=== PATIENT | female | born 1965 | race Caucasian/White ===

== ENCOUNTER 2016-12-16 14:06 | Emergency (ER) | payer OTHER ==
[~2016-12-16] VITALS: Ht 170.2 cm; Wt 140.6 kg
[~2016-12-16 14:06] MED LIST: COMBIVENT INH14.7 GM IH; COMBIVENT RESPIM4 GM IH; DILAUDID2 MG PO; DUONEB 2.5-0.5 M3 ML IH; EMERGEN-C PO; FLOVENT 22120 INHALA IH; FUROSEMIDE20 MG PO; MOTRIN800 MG PO; NAPROXEN SODIU550 MG PO; PEPCID AC; ROBITUSSIN100 MG/5 M PO; TYLENOL WITH C1 EACH PO
[2016-12-16 15:05] LABS: HEMATOCRIT 38.5 % (36.0-46.0); MCH 28.3 PG (29.0-34.0); MCHC 31.9 G/DL (30.0-36.0); MCV 88.7 FL (83-99); MEAN PLAT.VOLUME 9.3 uM^3 (9.5-12.4); PLATELET COUNT 292 K/uL (156-360); RBC DIS.WIDTH-CV 14.1 % (11.8-14.6); RBC DIS.WIDTH-SD 45.9 % (39-53); RED BLOOD COUNT 4.34 M/uL (3.80-5.20); WHITE BLOOD COUNT 11.3 K/uL (4.1-10.2)
[2016-12-16 15:14] LABS: CHLORIDE 106 mEq/L (99-109); POTASSIUM 4.2 mEq/L (3.7-5.4); SODIUM 143 mEq/L (136-147)
[2016-12-16 15:15] LABS: GLUCOSE 83 mg/dL (70-99)
[2016-12-16 15:17] LABS: ANION GAP 7 MEQ/L (2-14); D-DIMER ELISA < 150.00 ng/mLDDU (<230)
[2016-12-16 15:19] LABS: GFR ESTIMATE (CALCULATED) > 59 mL/min/
[2016-12-16 15:20] LABS: UREA NITROGEN (BUN) 14 mg/dL (9-23)
[2016-12-16 15:28] LABS: TROP-I INTERPRETATION NEGATIVE; TROPONIN-I < 0.01 ng/mL (0.0-0.30)
[2016-12-16] MEDS ORDERED: PREDNISONE50 MG PO (16:28)
[2016-12-16 17:03] VITALS: BP 121/92
== END 2016-12-16 17:04 | disposition home or self-care (01) ==
LOC: EME 14:06
PROVIDERS: Physician Assistant
DX: J45.901 Unspecified asthma with (acute) exacerbation (principal); Z87.891 Personal history of nicotine dependence
CPT/HCPCS: 71020; 80048; 84484; 85027; 85379; 93005; 94640; 99281; 99284; J7512